=== PATIENT | female | born 2000 | race Two or more races ===

== ENCOUNTER 2025-03-15 04:03 | Emergency (ER) | payer BC, SELFPAY ==
--- OUTSIDE RECORDS SUMMARY | 2008-04-08 20:00 | XMS_ITS | Continuity of Care Document ---
Demographics Address Unknown Address [address] [place] [address] Home Phone Preferred Language en Marital Status Unknown Mormon Affiliation Unknown Race Unknown Ethnic Group Unknown Author Organization [facility] Address [address] [place] [address] Phone Care Team Providers Care Psychiatric Orderly Name Role Phone Mat SÁNCHEZ Bill Unavailable Unavailable Procedures Procedure Date OFFICE/OUTPATIENT VISIT, [facility] DTAP VACCINE, < 7 YRS, IM POLIOVIRUS, IPV, SC/IM Advance Directives Directive Yes / No Effective Date File Name No Information Encounters Encounter Description Practice Location Reason(s) For Visit Diagnoses Date Provider Providers Copied on Encounter OFFICE/OUTPATI ENT VISIT, [facility], [address], [place], [id number], [place] tel:[phone] [facility] No Information Mat Sahni. [address], [place], [id number], [place]. tel:[phone] Family History Family Member Type Diagnosis Age At Onset No Information Payers Payer name Insurance type Covered democrat ID Authoriza tion(s) No Information Social History Type Description Quantity Date Captured Comments Sex Female Smoking Status No Information Chief Complaint And Reason For Visit No Information Reason For Referral Reason For Referral No Information History Of Present Illness Encounter Date Complaint History Of Prese nt Illness No Information Functional Status Date Functional Assessmen t No Information Instructions Date Instruction Additional Infor mation No Information Assessments Type Assessment Date No Information Patient Care Teams Name Effective Dates (start - stop) Status Members No Information
--- OUTSIDE RECORDS SUMMARY | 2025-03-15 04:17 | XMS_ITS | Patient Health Record ---
Author Organization [employer] [facility] Serv es Address [address] [place] [address] Care Team Providers Care Cost Clerk Name Role Phone PerPrasanthi Primary Care Provider Araceli Bradshaw Unavailable [phone] Reason For Referral No Information Social History Section Notes: parent smokes outside parent smokes outside Plan Of Treatment No Information Insurance Providers Payer Name Payer Address Payer Phone Subscriber Number Group Number Insured Name Patient Relationship to Insured Coverage Start Date Coverage End Date [employer] [address] [place] [id number] LULSEEMAETIENNE Self - [facility] [employer] [address] [place] [address] [phone], ALYSSASelf - patient is the insured Medical (General) History Medical History History ICD Code Premature. birthwt 2lb 13oz. 27.5 weeks
[2025-03-15 04:19] VITALS: BP 130/86; PULSE 71; TEMP 36.7; O2SAT 100; BMI 37.6
--- NOTE | 2025-03-15 04:25 | ECG_ITS ---
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 Measurements Intervals [place] Rate: 85 P: 51 [place]: 176 QRS: 71 QRSD: 88 T: 35 QT: 350 QTc: 392 Interpretive Statements 1100 Sinus rhythm 4068 Nonspecific Twave abnormality 9130 borderline ECG No previous ECG available for comparison Electronically Signed On 03-15-2025 6:30:48 EDT by IESHA TODD M.D.
--- NOTE | 2025-03-15 04:48 | ED_ITS ---
HPI - Chest Pain General Chief Complaint: Chest Pain Stated Complaint: CHEST PAIN, & HIGH BLOOD PRESSURE Time Seen by Provider: 03/15/25 04:45 Source: patient Mode of arrival: walk-in Limitations: no limitations History of Present Illness HPI narrative: after eating lunch at work tonight she developed a tightness of her chest. No dyspnea or diaphoresis. no light headiness and no cardiac risk factors Related Data Home Medications ?Medication ?Instructions ?Recorded ?Confirmed No Known Home Medications 03/15/2502/15 Allergies Allergy/AdvReac Type Severity Reaction Status Date / Time No Known Drug Allergies Allergy Verified 03/15/25 04:37 Review of Systems ROS Status of ROS 10 or more systems reviewed and unremark able except as noted in history and below PFSH PFSH Social History Little interest or pleasure in doing things: nearly every day Feeling down, depressed, or hopeless: more than half the days Exam Constitutional Vital Signs, click to edit/add: Last Vital Signs Temp 98.1 F 03/15/25 04:19 Pulse 71 03/15/25 04:19 Resp 18 03/15/25 04:19 BP 130/86 03/15/25 04:19 Pulse Ox 100 03/15/25 05:23 O2 Del Method Room Air 03/15/25 05:23 Common normals: no apparent distress, average body habitus, oriented x3, no limitations, healthy appearing, alert and well nourished [facility] Common normals: normocephalic and head/scalp atraumatic Eye Common normals: EOMs intact bilaterally and conjunctivae normal Respiratory Common normals: normal respiratory effort, no retractions, no use of accessory muscles and clear to auscultation bilaterally Cardio Common normals: regular rate, regular rhythm, S1 normal heart sound and S2 normal heart sound GI Common normals: Normal to inspection, nondistended, normoactive bowel sounds present, soft to palpation and non-tender Extremity Common normals: normal to inspection and full ROM Neuro Common normals: oriented x3, CN's II-XII intact bilaterally and no focal motor deficits Psych Appearance: grossly normal Course Vital Signs Vital signs: Vital Signs Temperature 98.1 F 03/15/25 04:19 Pulse Rate 71 03/15/25 04:19 Respiratory Rate 18 03/15/25 04:19 Blood Pressure 130/86 03/15/25 04:19 Pulse Oximetry 100 03/15/25 04:19 Oxygen Delivery Method Room Air 03/15/25 04:19 Temperature 98.1 F 03/15/25 04:19 Pulse Rate 71 03/15/25 04:19 Respiratory Rate 18 03/15/25 04:19 Blood Pressure 130/86 03/15/25 04:19 Pulse Oximetry 100 03/15/25 05:23 Oxygen Delivery Method Room Air 03/15/25 05:23 MDM - Chest Pain MDM Narrative Medical decision making narrative: 24 female presents from work with acute onset of chest pain after eating. No cardiac risk factors. EKGNSR with early repolarization. cxray per my preliminary review is WNL. Discomfort resolved spontaneously. troponin normal at 4.2. Patient advised of neg workup and she feels well now except she is requesting motrin for a headache. Given dose of motrin and advised to follow up with her doctor for a recheck Lab Data Labs: Lab Results 03/15/25 Range/Units 04:55 WBC 5.8 (4.0-11.0) 10^3/uL RBC 6.04 H (4.20-5.40) 10^6/uL Hgb 13.6 (12.0-16.0) g/dL Hct 45.4 (36.0-48.0) % MCV 75.2 L (81.0-99.0) fL MCH 22.5 L (26.7-34.0) pg MCHC 30.0 (29.9-35.2) g/dL RDW 17.6 H (11.0-15.0) % Plt Count 341 (150-450) 10^3/uL MPV 10.6 (9.5-13.5) fL Neut % (Auto) 63.0 (43.0-75.0) % Lymph % (Auto) 23.1 (20.5-60.0) % Benzie % (Auto) 12.3 H (1.7-12.0) % Eos % (Auto) 0.9 (0.9-7.0) % Baso % (Auto) 0.5 (0.2-2.0) % Neut # (Auto) 3.6 (1.4-6.5) 10^3/uL Lymph # (Auto) 1.3 (1.2-3.8) 10^3/uL Benzie # (Auto) 0.7 (0.3-0.8) 10^3/uL Eos # (Auto) 0.1 (0.0-0.7) 10^3/uL Baso # (Auto) 0.0 (0.0-0.1) 10^3/uL Abs Immat Gran (auto) 0.01 (0.00-0.03) 10^3/uL Imm/Tot Granulo (auto) 0.2 (0.0-0.5) % Sodium 141 (136-145) mmol/L Potassium 3.9 (3.5-5.1) mmol/L Chloride 104 (98-107) mmol/L Carbon Dioxide 29.7 (21.0-32.0) mmol/L Anion Gap 11.2 BUN 14.0 (7.0-18.0) mg/dL Creatinine 0.92 (0.55-1.02) mg/dL Est GFR ( Amer) >60 (>=60 mL/min/1.73m^2) Est GFR (Non-Af Amer) >60 (>=60 mL/min/1.73m^2) BUN/Creatinine Ratio 15.2 Glucose 96 (74-106) mg/dL Calcium 9.5 (8.5-10.1) mg/dL Total Bilirubin 0.5 (0.2-1.0) mg/dL AST 23 (15-37) U/L ALT 32 (14-59) U/L Alkaline Phosphatase 109 (46-116) U/L Troponin I High Sens 4.2 (4.0-51.3) pg/mL Total Protein 8.3 H (6.4-8.2) g/dL Albumin 4.1 (3.4-5.0) g/dL Globulin 4.2 g/dL Albumin/Globulin Ratio 1.0 Lipase 36.0 (16.0-77.0) U/L Discharge Plan Discharge Chief Complaint: Chest Pain Clinical Impression: Atypical chest pain Patient Disposition: Home, Self-Care Prescriptions / Home Meds: No Action No Known Home Medications Print Language: Nepali Instructions: Noncardiac Chest Pain (ED) Additional Instructions: follow up with your doctor early next week for recheck Referrals: Physician,Non-Staff, MD [Primary Care Provider] - 1 week
--- NOTE | 2025-03-15 04:49 | XR_ITS ---
[facility] [place] [address] Patient Name: ETIENNE MCCARTY MRN: [id number] date: 2000 Sex: F Assigned Patient Location: ER Current Patient Location: ED.MAIN Accession/Order Number: [id number] Exam Date: 03/15/2025 05:10 Report Date: 03/15/2025 08:51 At the request of: ASHLEY SCOTT MD Procedure: XR chest 1V PORTABLE AP ERECT CHEST 0459 hours CLINICAL HISTORY: chest pain and hypertension COMPARISON: None Assessment is slightly limited by large body habitus. The heart is within normal limits for size. There is no vascular congestion. The lungs, as visualized, are clear. There is no effusion or pneumothorax. The osseous structures are intact. XR/XR chest 1V IMPRESSION: NO ACUTE FINDINGS Impression dictated by: Annel Peters M.D. 03/15/2025 8:51 AM Dictation Location: [place] [address] Electronically authenticated by: [id number] Date: 03/15/2025 08:51
[2025-03-15 05:03] LABS: Hematocrit 45.4 % (36.0-48.0); Hemoglobin 13.6 g/dL (12.0-16.0); Immature Granulocytes Abs Auto 0.01 10^3/uL (0.00-0.03); Immature Granulocytes Pct Auto 0.2 % (0.0-0.5); Lymphocytes Absolute Auto 1.3 10^3/uL (1.2-3.8); Mean Corpuscular HGB Conc 30.0 g/dL (29.9-35.2); Mean Corpuscular Hemoglobin 22.5 pg (26.7-34.0); Mean Corpuscular Volume 75.2 fL (81.0-99.0); Platelet Count 341 10^3/uL (150-450); Red Blood Count 6.04 10^6/uL (4.20-5.40); White Blood Count 5.8 10^3/uL (4.0-11.0)
[2025-03-15 05:19] LABS: Alanine Aminotransferase 32 U/L (14-59); Albumin Globulin Ratio 1.0; Albumin Level 4.1 g/dL (3.4-5.0); Alkaline Phosphatase 109 U/L (46-116); Anion Gap 11.2; Aspartate Amino Transferase 23 U/L (15-37); Blood Urea Nitrogen 14.0 mg/dL (7.0-18.0); Calcium 9.5 mg/dL (8.5-10.1); Carbon Dioxide 29.7 mmol/L (21.0-32.0); Chloride 104 mmol/L (98-107); Estimated GFR (African America >60 (>=60 mL/min/1.73m^2); Estimated GFR (Non-African Ame >60 (>=60 mL/min/1.73m^2); Globulin 4.2 g/dL; Glucose 96 mg/dL (74-106); Lipase 36.0 U/L (16.0-77.0); Potassium 3.9 mmol/L (3.5-5.1); Sodium 141 mmol/L (136-145); Total Protein 8.3 g/dL (6.4-8.2)
[2025-03-15 05:23] VITALS: O2SAT 100
[2025-03-15] MEDS: lidocaine HCL 15 ML, MAG HYDROX/ALUMINUM HYD/SIMETH 30 ML, HYOSCYAMINE SULFATE 0.25 MG PO (05:46)
[2025-03-15] MEDS: IBUPROFEN 400 MG TABLET 800 MG PO (06:45)
== END 2025-03-15 07:10 | disposition home or self-care (01) ==
PROVIDERS: Emergency Provider Internal Medicine
DX: R07.89 Other chest pain (principal); R51.9 Headache, unspecified
CPT/HCPCS: 36415; 71045; 80053; 83690; 84484; 85025; 93005; 99284; 99285